=== PATIENT | male | born 1970 | race Caucasian/White ===

== ENCOUNTER 2018-05-20 11:49 | Emergency (ER) | payer SELFPAY ==
[2018-05-20] MEDS ORDERED: LISINOPRIL20 MG PO (12:55)
[2018-05-20] MEDS ORDERED: MEDDOSEPAK PO (12:55)
[2018-05-20] MEDS ORDERED: TORADOL PO (12:55)
[2018-05-20 13:04] VITALS: BP 157/102
== END 2018-05-20 13:15 | disposition home or self-care (01) | DRG 556 ==
LOC: ED 11:49
DX: M25.561 Pain in right knee (principal); I10 Essential (primary) hypertension; Z91.14 Patient's other noncompliance with medication regimen

== ENCOUNTER 2020-07-09 10:22 | Inpatient (IN) | payer SELFPAY ==
[~2020-07-09] VITALS: Ht 172.7 cm; Wt 125.0 kg
[~2020-07-09 10:22] MED LIST: LISINOPRIL20 MG PO; MEDDOSEPAK PO; TORADOL PO
--- NOTE | 2020-07-09 10:45 | NUR ---
PATIENT AMBULATED TO ROOM WITH STEADY GAIT AND PHYSICIAN NOTIFIED OF PATIENT STATUS
--- NOTE | 2020-07-09 11:45 | NUR ---
PATIENT RESTING AWAITNG LAB AND RADIOLOGY RESULTS PATIENT STATES PAIN IN ARM A 5 ON 0-10 SCALE
[2020-07-09 12:16] LABS: HEMATOCRIT 46.9 % (39.0-50.0); HEMOGLOBIN 15.4 g/dl (14.0-18.0); IMMATURE GRANULOCYTES 1.4 % (0.0-5.0); MEAN CELL VOLUME 83.2 fL CALC (80.0-100.0); MEAN CORPUSCULAR HGB 27.3 pG CALC (26.0-32.0); MEAN CORPUSCULAR HGB CONC 32.8 g/dL CAL (32.0-36.0); NEUT# 16.65 thou/uL (1.82-7.42); RED BLOOD COUNT 5.64 mill/uL (4.70-6.10); RED CELL DISTRI WIDTH 13.2 % (11.5-15.5)
[2020-07-09 12:28] LABS: ALBUMIN 4.1 g/dL (3.2-5.0); ALKALINE PHOSPHATASE 104 u/l (38-126); ANION GAP 15 (6-22 (CALC)); BILIRUBIN, TOTAL 0.7 mg/dL (0.0-1.4); BUN 23 mg/dL (9-20); BUN/CREATININE RATIO 17 (12-20 (CALC)); CARBON DIOXIDE 20 mmol/l (22-30); CHLORIDE 105 mmol/l (95-108); CREATININE 1.4 mg/dL (0.7-1.3); GFR 54 ML/MIN (>=60 (CALC)); GFR FOR AFR.AMER. > 60 ML/MIN (>=60 (CALC)); POTASSIUM 4.3 mmol/l (3.5-5.1); SGOT/AST 20 u/l (17-59); SODIUM 136 mmol/l (137-146); TOTAL PROTEIN 7.4 g/dL (6.3-8.2)
--- NOTE | 2020-07-09 12:50 | NUR ---
PATIENT IN RADIOLOGY AND AWAITING RESULTS. MEDICATIONS INFUSING ORDERED
--- NOTE | 2020-07-09 13:50 | NUR ---
PATIENT RESTING AWAITING RADIOLOGY RESULTS. MEDICATION INFUSING PER ORDERS CLAY STATES PAIN 4 ON 0-10 SCALE
--- NOTE | 2020-07-09 14:43 | NUR ---
PATIENT RESTING AWAITING ROOM ASSIGNMENT. MEDICATION INFUSING PER ORDER. PATIENT STATES PAIN 4 ON 0-10 SCALE
--- NOTE | 2020-07-09 15:16 | NUR ---
REPORT CALLED TO ADILIA IN [facility] PATIENT AWAITING TRANSPORT TO THE OR
--- NOTE | 2020-07-09 15:57 | NUR ---
PATIENT TO OR
[2020-07-09 18:25] VITALS: BP 145/87
[2020-07-09 18:40] VITALS: BP 121/80
--- NOTE | 2020-07-09 19:00 | NUR ---
RECEIVED REPORT FROM MELE PAT. PT. ALREADY ON UNIT IN BED.
[2020-07-09 19:10] VITALS: BP 129/81
[2020-07-09 19:40] VITALS: BP 143/85
--- NOTE | 2020-07-09 19:49 | NUR ---
PT. SITTING UP IN BED AND C/O LEFT ARM POST OP PAIN; MEDICATED WITH ORDERED PRN DILAUDID; WILL REASSESS. ADMISSION ASSESSMENT COMPLETED. DRESSING WITH BRICE WRAP IN PLACE TO LFA; CDI. SWELLING AND REDNESS NOTED TO COMPLETE LEFT ARM. PULSES PRESENT TO ALL EXTREMETIES. EDCUATED ON POC; INCENTIVE SPIROMETER PROVIDED AND EDUCATION GIVEN; PT. ABLE TO PULL 2000 AND GOAL SET TO 2500. PT. VOIDED 300MLS OF DARK YELLOW CLEAR URINE. IV SITE PATENT AND ORDERED IVF INFUSING WELL.
[2020-07-09 20:00] VITALS: BP 140/78
--- NOTE | 2020-07-09 22:32 | NUR ---
PT. C/O LEFT ARM PAIN 07/07; MEDICATED WITH ORDERED PRN DILAUDID; WILL REASSESS.
--- NOTE | 2020-07-10 00:05 | NUR ---
VSS. NO DISTRESS NOTED. MEDICATED WITH ORDERED/SCHED MEDS. PO FLUIDS PROVIDED. URINAL EMPTIED. CALL LIGHT IS IN REACH.
[2020-07-10 00:08] VITALS: BP 132/65
--- NOTE | 2020-07-10 02:32 | NUR ---
PT. MEDICATED WITH ORDERED PRN DILAUDID FOR C/O PAIN; WILL REASSESS.
[2020-07-10 04:25] VITALS: BP 119/72
--- NOTE | 2020-07-10 05:46 | NUR ---
PT. C/O LFA PAIN AND MEDICATED WITH ORDERED/SCHEDULED TORADOL; PO FLUIDS OFFERED. DENIES FURTHER NEEDS.
[2020-07-10 06:09] LABS: MEAN CELL VOLUME 85.7 fL CALC (80.0-100.0); MEAN CORPUSCULAR HGB 27.1 pG CALC (26.0-32.0); MEAN CORPUSCULAR HGB CONC 31.6 g/dL CAL (32.0-36.0); NEUT# 10.27 thou/uL (1.82-7.42); RED BLOOD COUNT 4.76 mill/uL (4.70-6.10); RED CELL DISTRI WIDTH 13.4 % (11.5-15.5)
[2020-07-10 06:22] LABS: HEMATOCRIT 40.8 % (39.0-50.0); HEMOGLOBIN 12.9 g/dl (14.0-18.0)
--- NOTE | 2020-07-10 07:37 | NUR ---
PT note Patient may benefit from PT evaluation
[2020-07-10 08:33] VITALS: BP 128/82
--- NOTE | 2020-07-10 08:33 | NUR ---
RECIEVED REPORT FROM Aleyda SANCHEZ RN. PT RESTING IN LOW FOWLERS POSITION UPON ENTERING ROOM.INTRODUVED SELF TO PT AND DISCUSSED POC.ASSESSMENT AND VITALS COMPLERTED . RESPIRATIONS ARE EVEN AND UNALBROED WITH NO SIGNS OF DISTRESS.LUNG SOUNDS ARE CLEAR. HEART RHYTHM IS NORMAL. BOWEL SOUNDS ARE ACTIVE IN ALL QUADRANTS, LAST REPORTEED BM 07/09/20. RIGH RADIAL AND PEDAL PULSES ARE STRONG WITH NORMAL CAPILLARY REFILL. LEFT RADIAL PULSES IS WEAK WITH NORMAL CAPILLARY REFILL. PT HAD I&D OF LFT ARM ON 07/09/[address] MOMIN, PT HAS 1+ EDMEA TO LEFT ARM. PT COMPLAINS OF 10/10 APIN, DILAUDID TO BE GIVEN WITH MORNING MEDICTAIONS. #22 IN RH RUNNING WITH LR AT 150ML ORDERED, SITE APPEARS HEALTHY AND PATENT. PT DENIES ANY OTHER PAIN OR DISCOMFORTS AT THIS TIME. ALL SAFETY PRECAUTIONS REMAIN IN PLACE WITH CALL LIGHT IN REACH. WILL CONTINUE TO MONITOR
--- NOTE | 2020-07-10 11:08 | NUR ---
DR NARAYAN AT BEDSIDE CHANGING DRESSING AT THIS TIME
[2020-07-10 12:00] VITALS: BP 150/91
--- NOTE | 2020-07-10 12:15 | NUR ---
PT SITTING UP IN RECYLINER WATCHING TV WITH AT BEDSIDE. REPSIRTAIONS ARE EVEN AND UNLABORED WITH NO SIGNS OF DISTRESS. PT COMPLAINS OF PAIN IN ARM, TORADOL TO ADMINISTERED. PT DENIES ANY PAIN OR DISCOMFORTS AT THIS TIME.ALL ASFETY PRECAUTIONS ARE IN PLACE WITH CALL LIGHT IN REACH.Mercedes BRANDT
[2020-07-10 16:00] VITALS: BP 150/76
--- NOTE | 2020-07-10 16:39 | NUR ---
IV REMOVED BY PATIENT. IV FOUND WITH CATHATER STILL INTACT. ATTEMPTED TO START NEW IV, FAILED TWICE. MARCELLATHER TO ATTEMPT TO START NEW IV. PT RESTING IN SEMI FOWLERS POSITION. PT DENIES ANY PAIN OR DISCOMFORTS. ALL SAEFTY PREACUTIONS REMAIN IN PLACE. WILL CONTINUE TO MONITOR
--- NOTE | 2020-07-10 17:09 | NUR ---
NEW #22G IN RAC STARTED IN RAC. PT TOLERTATED WELL
--- NOTE | 2020-07-10 17:47 | NUR ---
OBTAINED CONSENT SIGNED AT THIS TIME FOR I&D OF LEFT ARM . PT VERBALIZED NO QUESTIONS OR CONCERNS
[2020-07-10 19:00] VITALS: BP 167/98
--- NOTE | 2020-07-10 19:20 | NUR ---
pt. c/o lfa pain and medicated with ordered prn dilaudid; will reassess. assessment completed. iv site patent and ordered ivf infusing well. updated on poc; verbalizes understanding.
--- NOTE | 2020-07-10 20:45 | NUR ---
dressing changed as per order. pt. tolerated well.
--- NOTE | 2020-07-10 23:35 | NUR ---
PT. C/O LFA PAIN; MEDICATED WITH ORDERED/SCHEDULED TORADOL; WILL REASSESS.
[2020-07-11] VITALS (13 sets, daily range): BP systolic 143–197; BP diastolic 79–121
--- NOTE | 2020-07-11 03:00 | NUR ---
RESTING IN BED WITH EYES CLOSED, RESP EVEN AND UNLABORED.
--- NOTE | 2020-07-11 04:35 | NUR ---
pt. c/o lfa pain and medicated with ordered prn dilaudid; will reassess.
--- NOTE | 2020-07-11 07:15 | NUR ---
RECIEVED REPORT FROM KAROLINA REN. PT SLEEPING IN SEMI FOWLERS POSITION UPON ETERING ROOM. INTRODUCED SELF TO PT AND DISCUSSED POC. ASSESSMENT AND VITALS COMPLETED AT THSI TIME. RESPIRATIONS ARE EVEN AND UNLABORED WITH NO SIGNS OF DISTRESS. LUNG SOUNDS ARE CLEAR. HEART RHYTHM IS NORMAL. BOWEL SOUNDS AREA CTIVE IN ALL QUADRANTS.LAST REPORTED BM 07/10/20. RADIAL AND PEDAL PULSES ARE STRONG WITH NORMAL CAPILLARY REFILL. LEFT ARM HAS 3+ EDEMA. I&D ON 07/09/20. SCHEDULED I&D TODAY. PT COMPLAINS OF 8/10 PAIN AT THSI TIME. INFORMED PT THAT WE WILL NOT BE ABLE TO GIVE ANYTHING DUE TO OR CALLING STATING THAT THEY WILL BE UP TO GET PT. PT VERBALIZED UNDERSTANDING. #22 IN RAC RUNNING WITH LR AT 150 ORDERED. PT DENIES ANY OTHER PAIN OR DISOCMOFRTS AT THIS TIME. ALL SAFETY PRECAUTIONS ARE IN PLACE WITH CALL LIGTH IN REACH. WILL CONTINUE TO [facility]
--- NOTE | 2020-07-11 07:55 | NUR ---
PT BEING TRANSPORTED TO OR BY OR STAFF VIA STRETCHER IN STABLE CONDITION FOR I&D.
--- NOTE | 2020-07-11 10:54 | NUR ---
PT ARRIVED BACK TO [facility] ROOM 264 VIA STRETCHER IN STABEL CONDITION. PT AMBULATED FROM STRETCHER TO BED WITH NO DIFFICULTY. RESPIRATIONS ARE EVEN AND UNALBROED WITH NO SIGNS OF DISTRESS. LUNG SOUNDS ARE ONEAL. HEART RHYTHM IS NORMAL. PT COMPLAINS OF 10/10 PAIN IN LEFT ARM. PERCOCET TO BE ADMINISTERED. DRESSING TO LEFT ARM REAMINS CDI AT THIS TIME. ALL SAFETY PRECAUTIONS ARE IN PLACE WITH CALL LIGHT IN REACH. WILL CONTINUE TO MONITOR
--- NOTE | 2020-07-11 12:42 | NUR ---
REASSESSMENT OF PAIN RESULTING IN 07/07. SCHEDULED TORADOL TO BE ADMINSTERED. RESPIRATIONS ARE EVEN AND UNLABORED WITH NO ISGNS OF DISTRESS. ALLL SAFETY PRECAUTIONS ARE IN PLACE WITH CALL LIGHT IN REACH. WILL CONTINUE TO MONITOR
--- NOTE | 2020-07-11 14:12 | NUR ---
REASSESSMEN TO PAIN AT THIS TIME. RESULTING IN 06/06. PT SAYS "PAIN MEDICATION IS WORKING, BUT HIS ARM IS JUST SORE". RESPIRATIONS ARE EVEN AND UNALBORED WITH NO SIGNS FO DISTERSS. ALL SAFETY PRECAUTIONS ARE IN PLACE WITHC ALL LIGHT IN REACH. WILL COTNINUE TO MONITOR
--- NOTE | 2020-07-11 15:41 | NUR ---
REPORTED BP 166/108. DR IBARRA TO BE NOTIFIED OF BP. RESPIRTAIONS ARE EVEN AND UNLABORED WITH NO IGNS FO DISTRESS. ALL SAFTEY PRECAUIOTNS ARE IN PLACE WITH CALL LIGHT IN REACH. EILL CONTINUE TO MONIOTR
--- NOTE | 2020-07-11 15:56 | NUR ---
[facility] CALLED.NO ANSWER, VOICE MAIL LEFT
--- NOTE | 2020-07-11 16:01 | NUR ---
GOT IN CONTACT WITH STACE[facility]. PT IS YESSENIA. MERRILL CALLED. ORDER FOR PHYSICANS CONSULT. CALLED [facility] BACK. VOICE MAIL LEFT
--- NOTE | 2020-07-11 16:12 | NUR ---
REASSESSMENT OF BP RESULTING IN 143/79, STACEY ORDERED HYDRALAZINE 10 MG FOR SYSTOLIC >170
--- NOTE | 2020-07-11 16:37 | NUR ---
PT COMPLAINS OF 8/10 PAIN. DILAUDID ADMINISTERED. RESPIRATIONS ARE EVEN AND UNLABORED WITH NO SIGNS OF DISTRESS. ALL SAFETY PRECAUTIONS ARE IN PLACE WIHT CALL LIGHT IN [facility]. WILL COTNINUET TO MONITOR
--- NOTE | 2020-07-12 00:11 | NUR ---
PT AWAKE AND LAYING IN BED. MEDICATED FOR PAIN PER PT REQUEST. PHYSICAL ASSESSMENT COMPLETED.
--- NOTE | 2020-07-12 01:03 | NUR ---
PT SLEEPING WELL IN BED. NO C/O PAIN AT THIS TIME. WILL CONTINUE TO MONITOR FOR ANY NEW CHANGES IN CONDITION.
[2020-07-12 03:52] VITALS: BP 170/103
--- NOTE | 2020-07-12 05:07 | NUR ---
PT SLEEPING WELL. EASILY AWAKENS UPON ENETRING ROOM. ABLE TO VERBALIZE PAIN TO LEFT ARM AND HEADACHE AND REQUEST PAIN MEDICATION. WILL CONTINUE TO MONITOR FOR ANY NEW CHANGES IN CONDITION.
[2020-07-12 08:28] VITALS: BP 180/89
--- NOTE | 2020-07-12 09:00 | NUR ---
PT IS ALERT AND ORIENTED AND ABLE TO MAKE NEEDS KNOWN. SKIN WARM TO TOUCH. MEDICATIONS GIVEN AND TOLERATED WELL. PT IS MEDICATED FOR SURGICAL SITE PAIN EVERY 2 HOURS AND HAS SHORT TERM EFFECTIVENESS. RESPIRATIONS ARE EVEN AND NON LABORED AND NO COUGH NOTED. LUNG SOUNDS ARE CLEAR. PT COMPLAINED OF PAIN AT IV SITE AND 22 REMOVED WITH CATHETER TIP INTACT AND 22G PLACED IN RIGHT ARM AND FLUSHES WELL. DRESSING IS CLEAN AND INTACT. PT IS CONTINENT OF B/B AND USES URINAL. BOWEL SOUNDS ARE ACTIVE. CALL LIGHT WITHIN REACH AND WILL CONTINUE TO OBSERVE.
[2020-07-12 12:51] VITALS: BP 168/80
--- NOTE | 2020-07-12 15:00 | NUR ---
PT IN BED WITH EYES OPEN AND COMPLAINED OF EXCRUITIATING PAIN TO LEFT ARM. DRESSING CHANGE COMPLETED TO LEFT ARM AND RED GRANUALATION TISSUE NOTED TO SITE AND SURROUNDING SKIN IS INTACT WITH NO S/S OF INFECTION. MEDICATED FOR PAIN AND WILL MONITOR EFFECTIVENESS. CALL LIGHT WITHIN REACH. BP ELEVATED EARLIER IN SHIFT AND MD MADE AWARE AND NEW ORDER FOR LISINIPRIL 20MG AND WAS GIVEN WILL CONTINUE TO OBSERVE
[2020-07-12 17:03] VITALS: BP 184/107
--- NOTE | 2020-07-12 18:12 | NUR ---
BP ELEVATED 180/92 MANUALLY. MD WAS CALLED AND NEW ORDER NOTED. lISINIPRIL 20MG GIVEN AND NEW ORDER TO INCREASE lISINIPRIL TO 40MG DAILY. APRESOLINE ORDERED PRN. WILL CONTINUE TO OBSERVE
--- NOTE | 2020-07-12 19:17 | NUR ---
PT BLOOD PRESSURE ELEVATED. PT STATES HE IS HAVING PAIN. TORADOL NOT DUE TO GIVE. OFFERRED TYLENOL AND PT DECLINED. DR. IBARRA NOTIFIED AND NWE ORDER TO RESTART MORPHINE TO SEE IF BLOOD PRESSURE DECREASES WITH PAIN MANAGEMENT. ORDERS NOTED AND FAXED TO .
--- NOTE | 2020-07-12 20:57 | NUR ---
PT AWAKE IN BED WATCHING T.V AND BROUSING CELL PHONE. ALERT AND ORIENTED. PHYSICAL ASSESSMENT COMPLETED. PT PLEASANT AND COMPLIANT. C/O CONSTANT THROBBING PAIN TO LFA AND HEAD. MEDICATED WITH PAIN MEDICATION WITH EFFECTIVE TOLERABLE PAIN. WILL CONTINUE TO MONITOR FOR ANY NEW CHNAGES IN CONDITION.
--- NOTE | 2020-07-12 21:39 | NUR ---
WHILE IN ROOM WITH PT, PT STATED HE HAS BEENN ON REGULAR DIET AND ADDING SALT TO HIS FOOD. PT STATES SALT HAS BEEN ON HIS TRAY AND USING IT.
--- NOTE | 2020-07-12 22:20 | NUR ---
DR IBARRA NOTIFIED OF PT BP INCREASE, NEW ORDERS TO START lABETOLOL 10MG IV Q6H PRN FOR SBP >170 IN BETWEEN ALPESOLINE DOSES.
[2020-07-12 23:20] VITALS: BP 162/97
--- NOTE | 2020-07-13 00:41 | NUR ---
PN IN BED RESTING WELL, LIGHTS OUT, TV ON. NO S/S OF ANY PAIN OBSERVED AT THIS TIME. FLUIS RUNNING VIA IV. WILL CONTINUE TO MONITOR FOR ANY NEW CHANGES IN CONDITION.
[2020-07-13 04:03] VITALS: BP 159/98
[2020-07-13 05:24] LABS: HEMATOCRIT 37.9 % (39.0-50.0); HEMOGLOBIN 12.4 g/dl (14.0-18.0); IMMATURE GRANULOCYTES 4.4 % (0.0-5.0); MEAN CELL VOLUME 83.3 fL CALC (80.0-100.0); MEAN CORPUSCULAR HGB 27.3 pG CALC (26.0-32.0); MEAN CORPUSCULAR HGB CONC 32.7 g/dL CAL (32.0-36.0); NEUT# 5.82 thou/uL (1.82-7.42); RED BLOOD COUNT 4.55 mill/uL (4.70-6.10); RED CELL DISTRI WIDTH 12.7 % (11.5-15.5)
[2020-07-13 05:46] LABS: ANION GAP 8 (6-22 (CALC)); BUN 10 mg/dL (9-20); BUN/CREATININE RATIO 11 (12-20 (CALC)); CHLORIDE 103 mmol/l (95-108); CREATININE 0.9 mg/dL (0.7-1.3); GFR > 60 ML/MIN (>=60 (CALC)); GFR FOR AFR.AMER. > 60 ML/MIN (>=60 (CALC)); SODIUM 134 mmol/l (137-146)
--- NOTE | 2020-07-13 05:47 | NUR ---
PT SLEEPING WELL IN BED UPON ENTERING ROOM. EASILY AROUSES WITH NOISE. PT C/O CONTINOUS PAIN TO LEFT ARM AND THROBBING HEADACHE THAT CAN BE TOLERATED AT 4/10. BP HAS BEEN FLUCTUATING SBP 160-185 WITH PRN ADM PER ORDERS.
[2020-07-13 06:01] LABS: CARBON DIOXIDE 27 mmol/l (22-30)
--- NOTE | 2020-07-13 07:50 | NUR ---
RECEIVED REPORT FOR THIS PT FROM ADILIA. PT IN BED WITH EYES CLOSED. NO RESPIRATORY DISTRESS NOTED. OXYGEN LEVEL 96% ON ROOM AIR. BP AT THIS TIME 174/100. RESIDENT DENIES ANY DISTRESS. MD MADE AWARE. LISINIPRIL GIVEN. PT IS CONTINENT OF B/B AND USES URINAL AT BEDSIDE. NOTED UP AND AMBULATING THIS AM WITH STEADY GAIT AND BALANCE. COMPLAINS OF PAIN TO LEFT ARM AT 7 ON SCALE OF 1-10 WITH 10 THE GREATEST. MEDICATED WITH DILAUDID ALTERNATING THE PERCOCET AND HAS SHORT TERM EFECTIVE NESS AT TIMES. WILL CONTINUE TO OBSERVE.
[2020-07-13 08:30] VITALS: BP 160/98
--- NOTE | 2020-07-13 08:45 | NUR ---
RECHECKED BP AND 160/98. PT DENIES ANY DISTRESS. CALL LIGHT IS WITHIN REACH. WILL CONTINUE TO OBSERVE.
[2020-07-13 12:06] VITALS: BP 168/98
--- NOTE | 2020-07-13 12:30 | NUR ---
RECHECKED PT BP AND 173/103. APRESOLINE 10MG GIVEN IV AND PT TOLERATED WELL. RESPIRATION ARE EVEN AND NON LABORED. MEDICATED FOR DRESSIING CHANGE. CALL LIGHT WITHIN REACH. PT SITTING UP IN BED. STOPPED LACTATED RINGERS THIS AM. WILL CONTINUE TO OBSERVE
[2020-07-13 15:00] VITALS: BP 173/103
--- NOTE | 2020-07-13 16:00 | NUR ---
CONTINUING TO OBSERVE BP AND BLOOD PRESSURE CONTINUES TO BE ELEVATED. LABETOLOL GIVEN. PT STATES THAT OTHERWISE THAN HIS PAIN HE FEELS FINE. ENCOURAGED PT TO CALL FOR ASSIST WITH TRANSFER DUE TO RECEIVING HYPERTENSIVE MEDICATIONS. dR. Velez IN TO SEE PT AND DRESSING CHANGE COMPLETED. 100% RED GRANULATION TISSUE NOTED. NO ODOR NOTED. PT NOTED WITH EXPIRATORY WHEEZING IN UPPER LUNG BOX. DR. IBARRA WAS CONTACTED AND NEW ORDER TO GIVE LASIX 40MG IV AND ADMINISTERED PRESCRIBED.HOB ELEVATED. PT DENIES RESPIRATORY COMPLICATIONS. RESPIRATION ARE EVEN AND NON LABORED. O2 SAT 97% ROOM AIR. WILL CONTINUE TO OBSERVE
[2020-07-13 16:30] VITALS: BP 169/90
--- NOTE | 2020-07-13 18:45 | NUR ---
RECHECKED PT BP AND 160/102. CONTINUES WITH EXPIRATORY WHEEZING THAT HAS IMPROVED. PT IS DIURESING WELL. OUTPUT OF 2000ML OF YELLOW COLORED URINE WITH NO SEDIMENT NOTED. DR. IBARRA WAS CALLED AND NEW ORDER TO GIVE AMLODIPINE 5MG NOW AND MEDICATION GIVEN BY MOUTH. wILL OBSERVE BP. DR. IBARRA WANTED DR MOMIN CONSULTED ON PAIN MEDICATIONS. DR. MOMIN CONSULTED AND NEW ORDERS NOTED. PT IN BED WITH NO DISTRESS NOTED. WILL CONTINUE TO OBSERVE
[2020-07-13 18:46] VITALS: BP 157/107
--- NOTE | 2020-07-13 19:00 | NUR ---
REPORT RECEIVED FROM Queenie PRADO RN, CARE OF PT ASSUMED AT THIS TIME.
--- NOTE | 2020-07-13 19:30 | NUR ---
PHYSICAL ASSESMENT COMPLETE. PT REPORTS THROBBING PAIN TO LUE. LUE ELEVATED, DRESSING C/D/I, NEUROVASCULAR ASSESMENT NEGATIVE. PRN PERCOCET ADMINISTERED PER PTS REQUEST, SEE E-MAR. PT DENIES FURTHER NEEDS AT THIS TIME. PLAN OF CARE REVIEWED, PT DENIES QUESTIONS, VERBALIZES UNDERSTANDING. ITEMS WITHIN REACH, BED LOCKED IN LOW POSITION W/ BEDRAILS UP X2. CALL WHITING WITHIN REACH, AGREES TO CALL PRN.
--- NOTE | 2020-07-13 22:09 | NUR ---
PT REPORTS THROBBING PAIN TO LUE. LUE ELEVATED, DRESSING C/D/I, NEUROVASCULAR ASSESMENT NEGATIVE. DILAUDID ADMINISTERED PER PTS REQUEST, SEE E-MAR. ICE CREAM PROVIDED PER PTS REQUEST. PT DENIES FURTHER NEEDS AT THIS TIME. ITEMS REMAIN WITHIN REACH, BED REMAINS LOCKED IN LOW POSITION W/ BEDRAILS UP X2. CALL WHITING REMAINS WITHIN REAC, AGREES TO CALL PRN.
[2020-07-14 03:50] VITALS: BP 134/85
--- NOTE | 2020-07-14 05:33 | NUR ---
ASSESMENT UNCHANGED FROM BEGINING OF SHIFT BASELINE ASSESMENT. AM HEMODYNAMICS WNL/ STABLE. PT AFEBRILE. PT DENIES NEEDS AT THIS TIME. ITEMS REMAIN WITHIN REACH, BED REMAINS LOCKED IN LOW POSITION W/ BEDRAILS UP X2.CALL WHITING REMAINS WITHIN REACH, AGREES TO CALL PRN.
[2020-07-14 08:00] VITALS: BP 142/96
[2020-07-14] MEDS ORDERED: PERCOCET 5/325M1 TAB PO (08:11)
[2020-07-14] MEDS ORDERED: AUGMENTIN500TAB PO (08:12)
--- NOTE | 2020-07-14 08:57 | NUR ---
PT HAS BEEN DISCHARGED TO HOME AFTER BEING SEEN BY DR MOMIN THIS AM. PT VERBALIZED UNDERSTANDING OF DC INSTRUCTIONS, AMBULATORY TO EXIT, NO DISTRESS.
[2020-07-14] MEDS ORDERED: AMLODIPINE BESYL5 MG PO (09:10)
[2020-07-14] MEDS ORDERED: LISINOPRIL20 MG PO (09:10)
== END 2020-07-14 08:53 | disposition home or self-care (01) | DRG 603 ==
LOC: ED 10:22 → ED-I 13:30 → ED 13:48 → MS2 13:49 → ED-I 13:49 → MS2 15:06
PROVIDERS: Family Medicine; ADMIT Surgery; ATTEND Surgery
PROC: 0H9EXZZ Drainage of Left Lower Arm Skin, External Approach (ICD-10-PCS; principal; 2020-07-09)
PROC: 0H9EXZZ Drainage of Left Lower Arm Skin, External Approach (ICD-10-PCS; 2020-07-11)
DX: L02.414 Cutaneous abscess of left upper limb (principal); L03.114 Cellulitis of left upper limb; T63.301A Toxic effect of unspecified spider venom, accidental (unintentional), initial encounter; I10 Essential (primary) hypertension; B95.4 Other streptococcus as the cause of diseases classified elsewhere
CPT/HCPCS: Q9967